=== PATIENT | female | born 1980 | race Caucasian/White ===

== ENCOUNTER 2016-09-07 02:32 | Emergency (ER) | payer SELFPAY ==
[2016-09-07] MEDS ORDERED: 0.9 % SODIUM CHLORIDE 1,000 ML BAG IV ONE ×2 (03:03→05:47)
[2016-09-07] MEDS ORDERED: PROMETHAZINE HCL 25 MG/ML VIAL IVP ONE (03:07)
[2016-09-07] MEDS ORDERED: LORAZEPAM 2 MG/ML VIAL IV ONE (03:10)
[2016-09-07] MEDS ORDERED: CLONIDINE HCL 0.1 MG TABLET PO ONE (03:10)
[2016-09-07 03:32] LABS: BASO % 0.2 % (0-6); EOS % 0.2 % (0-6); HEMATOCRIT 39.5 % (35.0-47.0); HEMOGLOBIN 12.7 gm/dl (11.6-16.0); LYMPH % 9.4 % (16-45); MEAN CELL VOLUME 90.4 fl (81-97); MEAN CORPUSCULAR HEMOGLOBIN 29.1 pg (27-33); MEAN CORPUSCULAR HGB CONC 32.2 g/dl (32-36); MEAN PLATELET VOLUME 10.3 fl (7.4-10.4); PLATELET COUNT 261 K/uL (130-400); RED BLOOD COUNT 4.37 M/uL (3.80-5.40); RED CELL DISTRIBUTION WIDTH 15.7 % (11.5-14.5); WHITE BLOOD COUNT W/O DIFF 12.5 K/uL (4.2-12.2)
--- NOTE | 2016-09-07 03:51 | Emergency Department Record ---
History of Present Illness - General Chief Complaint: Fever Stated Complaint: FEVER, STOMACH PAIN, BACK PAIN Time Seen by Provider: 09/07/16 02:41 Source: Patient Mode of Arrival: Ambulatory Limitations: No limitations - History of Present Illness Initial Comments: pt states she has a headache that started gradually since yesterday. she has a hx of migraines but this headache feels like the headache she had 18 yrs ago when she had meningitis. she has neck pain and back pain. she is being weaned off of methadone MD Complaint: Fever Onset/Timin -: Days(s) Associated Symptoms: Nausea Treatments Prior to Arrival: Acetaminophen - Related Data Home Medications Medication Instructions Recorded Confirmed Last Taken Methadone HCl 10 mg PO DAILY 09/07/16 09/07/16 09/06/16 Previous Rx's Medication Instructions Recorded Amoxicillin 500Mg Capsule [Amoxil] 500 mg PO TID #30 tab 09/07/16 Allergies Allergy/AdvReac Type Severity Reaction Status Date / Time prochlorperazine AdvReac HYPERSENSIT Verified 09/07/16 02:46 [From Compazine] IVITY Travel Screening - Travel/Exposure Within Last 30 Days Have you traveled within the last 30 days?: No - Travel/Exposure Within Last Year Have you traveled outside the [place] in the last year?: No - Additonal Travel Details Have you been exposed to anyone with a communicable illness?: No - Travel Symptoms Symptom Screening: None Review of Systems Reviewed: No additional complaints except as noted below Constitutional: Reports: As per HPI. Denies: Chills, Fever, Malaise, Night sweats, Weakness, Weight change Eyes: Reports: As per HPI. Denies: Eye discharge, Eye pain, Photophobia, Vision change ENT: Reports: As per HPI. Denies: Congestion, Dental pain, Ear pain, Epistaxis , Hearing loss, Throat pain Respiratory: Reports: As per HPI. Denies: Cough, Dyspnea, Hemoptysis, Stridor, Wheezes Cardiovascular: Reports: As per HPI. Denies: Arrhythmia, Chest pain, Dyspnea on exertion, Edema, Murmurs, Orthopnea, Palpitations, Paroxysmal nocturnal dyspnea, Rheumatic Fever, Syncope Endocrine: Reports: As per HPI. Denies: Fatigue, Heat or cold intolerance, Polydipsia, Polyuria Gastrointestinal: Reports: As per HPI. Denies: Abdominal pain, Constipation, Diarrhea, Hematemesis, Hematochezia, Melena, Nausea, Vomiting Genitourinary: Reports: As per HPI. Denies: Abnormal menses, Discharge, Dyspareunia, Dysuria, Frequency, Hematuria, Incontinence, Retention, Urgency Musculoskeletal: Reports: As per HPI. Denies: Arthralgia, Back pain, Gout, Joint swelling, Myalgia, Neck pain Skin: Reports: As per HPI. Denies: Bruising, Change in color, Change in hair/ nails, Lesions, Pruritus, Rash Neurological: Reports: As per HPI. Denies: Abnormal gait, Confusion, Headache, Numbness, Paresthesias, Seizure, Tingling, Tremors, Vertigo, Weakness Psychiatric: Reports: As per HPI. Denies: Anxiety, Auditory hallucinations, Depression, Homicidal thoughts, Suicidal thoughts, Visual hallucinations Hematological/Lymphatic: Reports: As per HPI. Denies: Anemia, Blood Clots, Easy bleeding, Easy bruising, Swollen glands Past Medical History - SOCIAL HISTORY Smoking Status: Current every day smoker Alcohol Use: Occassional Drug Use: None - RESPIRATORY Hx Respiratory Disorders: No - CARDIOVASCULAR Hx Cardio Disorders: No - NEURO Hx Neuro Disorders: No - GI Hx GI Disorders: No - Hx Genitourinary Disorders: No - ENDOCRINE Hx Endocrine Disorders: No - MUSCULOSKELETAL Hx Musculoskeletal Disorders: No - PSYCH Hx Psych Problems: No - HEMATOLOGY/ONCOLOGY Hx Hematology/Oncology Disorders: No Family Medical History Any Significant Family History?: No Physical Exam - General General Appearance: Alert, Oriented x3, Cooperative, Mild distress - Head Head exam: Normal inspection - Eye Eye exam: Normal appearance, PERRL, EOMI Pupils: Normal accommodation - ENT ENT exam: Normal exam, Mucous membranes moist, Normal external ear exam, Normal orophraynx Ear exam: Normal external inspection. negative: External canal tenderness Nasal Exam: Normal inspection. negative: Discharge, Sinus tenderness Mouth exam: Normal external inspection, Tongue normal Teeth exam: Normal inspection. negative: Dental caries Throat exam: Normal inspection. negative: Tonsillar erythema, Tonsillar exudate - Neck Neck exam: Normal inspection, Full ROM. negative: Tenderness - Respiratory Respiratory exam: Normal lung sounds bilaterally. negative: Respiratory distress - Cardiovascular Cardiovascular Exam: Regular rate, Normal rhythm, Normal heart sounds - GI/Abdominal GI/Abdominal exam: Soft, Normal bowel sounds. negative: Tenderness - Rectal Rectal exam: Deferred - exam: Deferred - Extremities Extremities exam: Normal inspection, Full ROM, Normal capillary refill. negative: Tenderness - Back Back exam: Reports: Normal inspection, Full ROM. Denies: Muscle spasm, Rash noted, Tenderness - Neurological Neurological exam: Alert, CN II-XII intact, Normal gait, Oriented X3 - Psychiatric Psychiatric exam: Normal affect, Normal mood - Skin Skin exam: Dry, Intact, Normal color, Warm Course Vital Signs 09/07/16 02:37 Temperature 98.1 F Pulse Rate 76 Respiratory 20 Rate Blood Pressure 131/93 Pulse Ox 98 - Reevaluation(s) Reevaluation #1: 09/07/16 05:49 pt contd to have headache Reevaluation #2: 09/07/16 06:44 tube 4 had only 2 wbc and and 30 rbcs 09/07/16 06:47 Procedures - Lumbar Puncture Consent Obtained: Written consent Time Out Performed: Yes Indication for Procedure: Headache Patient Position: Right lateral decubitus Skin Prep: 0.5% Chlorhexidine/Alcohol, Povidone-Iodine 1% Local Anesthetic Used: Lidocaine 2% Spinal Needle Gauge: 22G Spinal Needle Length: 3in Interspace Used: L4-L5 Fluid Initially Obtained: Clear Complications: Traumatic tap Patient Tolerated Procedure: Fair Medical Decision Making - Lab Data Result diagrams: 09/07/16 03:20 09/07/16 03:20 Lab Results 09/07/16 Range/Units 03:20 WBC 12.5 H (4.2-12.2) K/uL RBC 4.37 (3.80-5.40) M/uL Hgb 12.7 (11.6-16.0) gm/dl Hct 39.5 (35.0-47.0) % MCV 90.4 (81-97) fl MCH 29.1 (27-33) pg MCHC 32.2 (32-36) g/dl RDW 15.7 H (11.5-14.5) % Plt Count 261 (130-400) K/uL MPV 10.3 (7.4-10.4) fl Lymphocytes % 9.4 L (16-45) % Monocytes % 5.0 (0-9) % Eosinophils % 0.2 (0-6) % Basophils % 0.2 (0-6) % Disposition Disposition: Discharge Clinical Impression: Pharyngitis Qualifiers: Pharyngitis/tonsillitis etiology: unspecified etiology Qualified Code(s): J02.9 - Acute pharyngitis, unspecified Headache Qualifiers: Headache type: unspecified Headache chronicity pattern: acute headache Intractability: intractable Qualified Code(s): R51 - Headache Sinusitis Qualifiers: Sinusitis location: other Chronicity: acute Recurrence: not specified as recurrent Qualified Code(s): J01.80 - Other acute sinusitis Disposition: Home, Self-Care Condition: (1) Good Instructions: Pharyngitis (ED), Sinusitis (ED), General Headache (ED) Additional Instructions: follow up with family doctor. return sooner if worse. rest. push fluids Prescriptions: Amoxicillin 500Mg Capsule [Amoxil] 500 mg PO TID #30 tab Forms: Patient Portal Access
[2016-09-07 04:12] LABS: ERYTHROCYTE SEDIMENTATION RATE 13 mm/hr (0-20)
[2016-09-07] MEDS ORDERED: HYDROMORPHONE HCL 1 MG/ML CPJ IVP ONE ×2 (04:48→05:20)
[2016-09-07 05:11] LABS: BLOOD UREA NITROGEN 7 mg/dL (7-17); GLUCOSE,RANDOM 112 mg/dL (70-110)
[2016-09-07 05:12] LABS: ALB/GLOB RATIO 0.9 (1.1-1.8); ALBUMIN 3.6 gm/dL (3.5-5.0); ALKALINE PHOSPHATASE 114 U/L (38-126); ALT/SGPT 16 U/L (9-52); AST/SGOT 33 U/L (14-36); CREATININE 0.8 mg/dL (0.52-1.04); EST GLOMERULAR FILTRATION RATE > 60 ml/min; TOTAL PROTEIN 7.4 gm/dL (6.3-8.2)
[2016-09-07] MEDS ORDERED: ONDANSETRON HCL IV 4 MG/2 ML VIAL IVP ONE (05:47)
[2016-09-07 06:39] LABS: SPECIMEN SOURCE CSF
[2016-09-07] MEDS ORDERED: AMOXICILLIN 500MG CAPSULE PO ONE (06:47)
[2016-09-07 06:56] LABS: CSF RBC 30 /mm3; CSF WBC 2 /uL
== END 2016-09-07 07:11 | disposition home or self-care (01) ==
LOC: ER 02:32
DX: R51 Headache (principal); J02.9 Acute pharyngitis, unspecified; J01.80 Other acute sinusitis; R11.0 Nausea
CPT/HCPCS: 62270 ×2; 99284 ×2; 96376; 96374; 96375; 85651; 80053; 87205; 89051; 82945; 85027; 70450; J2405; J2060; J1170; J2550; J7030

== ENCOUNTER 2016-09-08 00:33 | Emergency (ER) | payer SELFPAY ==
[2016-09-08] MEDS ORDERED: CEFTRIAXONE SODIUM 1 GM in 0.9 % SODIUM CHLORIDE 100ML 100 ML IVPB ONE (00:35)
[2016-09-08] MEDS ORDERED: 0.9 % SODIUM CHLORIDE 1,000 ML BAG IV ONE (00:35)
[2016-09-08] MEDS ORDERED: PROMETHAZINE HCL 25 MG/ML VIAL IVP ONE (00:39)
[2016-09-08] MEDS ORDERED: HYDROMORPHONE HCL 1 MG/ML CPJ IVP ONE (00:40)
[2016-09-08] MEDS ORDERED: LORAZEPAM 2 MG/ML VIAL IV ONE (00:40)
--- NOTE | 2016-09-08 00:51 | Emergency Department Record ---
History of Present Illness - General Chief Complaint: Recheck - Other Stated Complaint: RECHECK Time Seen by Provider: 09/08/16 00:35 Source: Patient Mode of arrival: Ambulatory Limitations: No limitations - History of Present Illness Initial Comments: pt was here last night for severe headache and was worked up for meningitis. according to the our lad pt had 30 rbcs and 2 wbcs in tube 4 [it was a bloody tap]. pt was discharged home after fluids and pain control. then this morning at 0030 [facility] lab called saying they counted 100 wbcs in tube 3. pt was called and told to come back in for further evaluation of meningitis. tammi called back again after pt returned and stated that bacterial antigens were negative. viral antigenswith herpes were added. pt still has a bad headand neck ache. Complaint: Abnormal lab Onset/Timin -: Hour(s) Initial Visit For: Other Returns Today for: Needs IV antibiotics Description of Abnormal Result: as above Symptoms Since Prior Visit: Worsening pain - Related Data Home Medications Medication Instructions Recorded Confirmed Last Taken Methadone HCl 10 mg PO DAILY 09/07/16 09/07/16 09/06/16 Previous Rx's Medication Instructions Recorded Amoxicillin 500Mg Capsule [Amoxil] 500 mg PO TID #30 tab 09/07/16 Allergies Allergy/AdvReac Type Severity Reaction Status Date / Time prochlorperazine AdvReac HYPERSENSIT Verified 09/07/16 02:46 [From Compazine] IVITY Review of Systems Reviewed: No additional complaints except as noted below Constitutional: Reports: As per HPI. Denies: Chills, Fever, Malaise, Night sweats, Weakness, Weight change Eyes: Reports: As per HPI. Denies: Eye discharge, Eye pain, Photophobia, Vision change ENT: Reports: As per HPI. Denies: Congestion, Dental pain, Ear pain, Epistaxis , Hearing loss, Throat pain Respiratory: Reports: As per HPI. Denies: Cough, Dyspnea, Hemoptysis, Stridor, Wheezes Cardiovascular: Reports: As per HPI. Denies: Arrhythmia, Chest pain, Dyspnea on exertion, Edema, Murmurs, Orthopnea, Palpitations, Paroxysmal nocturnal dyspnea, Rheumatic Fever, Syncope Endocrine: Reports: As per HPI. Denies: Fatigue, Heat or cold intolerance, Polydipsia, Polyuria Gastrointestinal: Reports: As per HPI. Denies: Abdominal pain, Constipation, Diarrhea, Hematemesis, Hematochezia, Melena, Nausea, Vomiting Genitourinary: Reports: As per HPI. Denies: Abnormal menses, Discharge, Dyspareunia, Dysuria, Frequency, Hematuria, Incontinence, Retention, Urgency Musculoskeletal: Reports: As per HPI. Denies: Arthralgia, Back pain, Gout, Joint swelling, Myalgia, Neck pain Skin: Reports: As per HPI. Denies: Bruising, Change in color, Change in hair/ nails, Lesions, Pruritus, Rash Neurological: Reports: As per HPI. Denies: Abnormal gait, Confusion, Headache, Numbness, Paresthesias, Seizure, Tingling, Tremors, Vertigo, Weakness Psychiatric: Reports: As per HPI. Denies: Anxiety, Auditory hallucinations, Depression, Homicidal thoughts, Suicidal thoughts, Visual hallucinations Hematological/Lymphatic: Reports: As per HPI. Denies: Anemia, Blood Clots, Easy bleeding, Easy bruising, Swollen glands Past Medical History - SOCIAL HISTORY Smoking Status: Current every day smoker Drug Use: None - RESPIRATORY Hx Respiratory Disorders: No - CARDIOVASCULAR Hx Cardio Disorders: No - NEURO Hx Neuro Disorders: No - GI Hx GI Disorders: No - Hx Genitourinary Disorders: No - ENDOCRINE Hx Endocrine Disorders: No - MUSCULOSKELETAL Hx Musculoskeletal Disorders: No - PSYCH Hx Psych Problems: No - HEMATOLOGY/ONCOLOGY Hx Hematology/Oncology Disorders: No Physical Exam - General General Appearance: Alert, Oriented x3, Cooperative, Moderate distress - Head Head exam: Normal inspection - Eye Eye exam: Normal appearance, PERRL, EOMI Pupils: Normal accommodation - ENT ENT exam: Normal exam, Mucous membranes moist, Normal external ear exam, Normal orophraynx Ear exam: Normal external inspection. negative: External canal tenderness Nasal Exam: Normal inspection. negative: Discharge, Sinus tenderness Mouth exam: Normal external inspection, Tongue normal Teeth exam: Normal inspection. negative: Dental caries Throat exam: Normal inspection. negative: Tonsillar erythema, Tonsillar exudate - Neck Neck exam: Normal inspection, Full ROM. negative: Tenderness - Respiratory Respiratory exam: Normal lung sounds bilaterally. negative: Respiratory distress - Cardiovascular Cardiovascular Exam: Regular rate, Normal rhythm, Normal heart sounds - GI/Abdominal GI/Abdominal exam: Soft, Normal bowel sounds. negative: Tenderness - Rectal Rectal exam: Deferred - exam: Deferred - Extremities Extremities exam: Normal inspection, Full ROM, Normal capillary refill. negative: Tenderness - Back Back exam: Reports: Normal inspection, Full ROM. Denies: Muscle spasm, Rash noted, Tenderness - Neurological Neurological exam: Alert, CN II-XII intact, Normal gait, Oriented X3 - Psychiatric Psychiatric exam: Normal affect, Normal mood - Skin Skin exam: Dry, Intact, Normal color, Warm Course - Reevaluation(s) Reevaluation #1: 09/08/16 01:36 based on pts hx of iv drug use pt will be transferred to [facility] for mri of spine to r/o other etiology Medical Decision Making - Lab Data Result diagrams: 09/08/16 00:40 09/08/16 00:40 Disposition Disposition: Transfer Clinical Impression: Meningitis Disposition: Acute Care Hospital Transfer Transfer To: [facility] Reason For Transfer: meningitis w iv drug use hx Accepting Physician: [place] Time Discussed w/Accepting Physician: 03:29 Forms: Patient Portal Access
[2016-09-08 01:07] LABS: BASO % 0.3 % (0-6); EOS % 0.1 % (0-6); GRAN % 76.1 % (47-80); HEMATOCRIT 36.8 % (35.0-47.0); HEMOGLOBIN 11.6 gm/dl (11.6-16.0); LYMPH % 18.1 % (16-45); MEAN CORPUSCULAR HGB CONC 31.5 g/dl (32-36); MEAN PLATELET VOLUME 10.3 fl (7.4-10.4); MONO % 5.4 % (0-9); PLATELET COUNT 232 K/uL (130-400); RED CELL DISTRIBUTION WIDTH 15.8 % (11.5-14.5); WHITE BLOOD COUNT W/O DIFF 11.6 K/uL (4.2-12.2)
[2016-09-08 01:12] LABS: URINE APPEARANCE CLEAR; URINE BILIRUBIN NEGATIVE (NEGATIVE); URINE BLOOD NEGATIVE (NEGATIVE); URINE COLOR YELLOW; URINE GLUCOSE (UA) NEGATIVE (NEGATIVE); URINE KETONE NEGATIVE (NEGATIVE); URINE LEUKOCYTE ESTERASE TRACE (NEGATIVE); URINE NITRITE POSITIVE (NEGATIVE); URINE PROTEIN NEGATIVE (NEGATIVE); URINE UROBILINOGEN 0.2 E.U./dL (0.20 - 1.00)
[2016-09-08 01:25] LABS: LACTIC ACID 1.2 mmol/L (0.7-2.1)
[2016-09-08 01:35] LABS: URINE BACTERIA FEW; URINE EPITHELIAL CELLS 0 - 2 (FEW); URINE RBC 0 - 2 (NONE SEEN)
[2016-09-08 01:36] LABS: ALB/GLOB RATIO 1.1 (1.1-1.8); ALBUMIN 3.8 gm/dL (3.5-5.0); BLOOD UREA NITROGEN 4 mg/dL (7-17); CREATININE 0.7 mg/dL (0.52-1.04); EST GLOMERULAR FILTRATION RATE > 60 ml/min; GLUCOSE,RANDOM 93 mg/dL (70-110); TOTAL PROTEIN 7.3 gm/dL (6.3-8.2)
[2016-09-08 01:37] LABS: ALKALINE PHOSPHATASE 118 U/L (38-126); ALT/SGPT 20 U/L (9-52); AST/SGOT 21 U/L (14-36)
[2016-09-08] MEDS ORDERED: 0.9 % SODIUM CHLORIDE 1000ML 1,000 ML IV ONE (02:50)
[2016-09-08] MEDS ORDERED: VANCOMYCIN HCL 1,000 MG in 0.9 % SODIUM CHLORIDE 250ML 250 ML IVPB ONE (03:18)
[2016-09-08 03:41] LABS: BARBITURATE SCREEN URINE NOT DETECTED; COCAINE SCREEN URINE DETECTED; METHADONE SCREEN URINE DETECTED; TRICYCLIC ANTIDEPRESSANT SCRN NOT DETECTED
[2016-09-08 03:42] LABS: AMPHETAMINE SCREEN URINE NOT DETECTED; BENZODIAZEPINE SCREEN URINE NOT DETECTED; METHAMPHETAMINE SCREEN NOT DETECTED; OPIATE SCREEN URINE NOT DETECTED; OXYCODONE SCREEN URINE NOT DETECTED; PHENCYCLIDINE SCREEN URINE NOT DETECTED; PROPOXYPHENE SCREEN URINE NOT DETECTED; THC SCREEN URINE NOT DETECTED
[2016-09-11 19:21] LABS: SPECIMEN TYPE CSF
== END 2016-09-08 04:23 | disposition short-term general hospital (02) ==
LOC: ER 00:33
DX: G03.9 Meningitis, unspecified (principal); R51 Headache; M54.2 Cervicalgia
CPT/HCPCS: 99285 ×2; 96365; 96366; 96375; 83605; 85025; 85651; 86140; 80053; 81001; 86308; 80305; G0480; J3370; J2060; J1170; 80320; J2550; J7030; J7050